=== PATIENT | female | born 1970 | race Caucasian/White ===

== ENCOUNTER 2018-03-02 12:40 | Emergency (ER) | payer MEDICAID, OTHER ==
--- NOTE | 2018-03-02 14:35 | ER Document Report ---
ED Medical Screen (RME) - General Chief Complaint: Ear Pain Stated Complaint: BILATERAL EAR PAIN Time Seen by Provider: 03/02/18 14:26 TRAVEL OUTSIDE OF THE [place] IN LAST 30 DAYS: No - HPI Notes: 03/02/18 14:33 Patient is a 47-year-old female that presents to the emergency department for chief complaint of bilateral ear pain. Patient referred to the emergency room from the [place] for concerns of bilateral ear pain and facial swelling. She has a history of hearing loss and is unable to get her hearing aids in because of ear swelling. A family member was recently treated for otitis externa as well. Patient complains of increased swelling around her ears and face over the last few days. She denies fevers. ROS: GENERAL: Denies fever of chills CV: Denies chest pain PHYSICAL EXAMINATION: GENERAL: Well-appearing, well-nourished and in no acute distress. HEAD: Atraumatic, normocephalic. EYES: Pupils equal round extraocular movements intact, conjunctiva are normal. ENT: Nares patent. Edema of bilateral external ear canals with no purulent drainage noted. Bilateral mastoid tenderness worse on the left. NECK: Normal range of motion LUNGS: No respiratory distress Musculoskeletal: Normal range of motion NEUROLOGICAL: Normal speech, normal gait. PSYCH: Normal mood, normal affect. MDM: Patient seen and examined for rapid initial assessment. Vital signs reviewed. A comprehensive ED assessment and evaluation of the patient, analysis of test results and completion of the medical decision making process will be conducted by additional ED providers. - Related Data Allergies/Adverse Reactions: No Known Allergies Allergy (Unverified 03/02/18 14:30) Past Medical History - Social History Chew tobacco use (# tins/day): No Frequency of alcohol use: Rare Drug Abuse: None Renal/ Medical History: Denies: Hx Peritoneal Dialysis Past Surgical History: Reports: Hx Thyroid Surgery - removed Physical Exam - Vital signs Vitals: Temp Pulse Resp BP Pulse Ox 98.3 F 92 20 135/88 H 100 03/02/18 13:07 03/02/18 13:07 03/02/18 13:07 03/02/18 13:07 03/02/18 13:07 Course - Vital Signs Vital signs: Temp Pulse Resp BP Pulse Ox 98.3 F 92 20 135/88 H 100 03/02/18 13:07 03/02/18 13:07 03/02/18 13:07 03/02/18 13:07 03/02/18 13:07
[2018-03-02 15:04] LABS: ABSOLUTE BASOPHILS # (AUTO) 0.1 10^3/uL (0.0-0.2); ABSOLUTE EOSINOPHILS # (AUTO) 0.1 10^3/uL (0.0-0.6); ABSOLUTE MONOCYTES (AUTO) 1.3 10^3/uL (0.1-1.4); ABSOLUTE NEUT (AUTO) 15.8 10^3/uL (1.7-8.2); BASOPHILS % (AUTO) 0.3 % (0-2); EOSINOPHILS % (AUTO) 0.4 % (0-6); HEMATOCRIT 41.3 % (36.0-47.0); HEMOGLOBIN 13.7 g/dL (12.0-15.5); LYMPHOCYTES % (AUTO) 10.2 % (13-45); MEAN CORPUSCULAR HEMOGLOBIN 26.3 pg (27.0-33.4); MEAN CORPUSCULAR HGB CONC 33.2 g/dL (32.0-36.0); MEAN CORPUSCULAR VOLUME 79 fl (80-97); MONOCYTES % (AUTO) 6.6 % (3-13); PLATELET COUNT 274 10^3/uL (150-450); RED BLOOD COUNT 5.22 10^6/uL (3.72-5.28); RED CELL DISTRIBUTION WIDTH 16.5 % (11.5-14.0); SEGMENTED NEUTROPHILS % (AUTO) 82.5 % (42-78); TOTAL CELLS COUNTED % (AUTO) 100 %; WHITE BLOOD COUNT 19.2 10^3/uL (4.0-10.5)
--- NOTE | 2018-03-02 15:09 | RADIOLOGY REPORT (SQ) ---
EXAM DESCRIPTION: CT ORBIT/SELLA WITHOUT COMPLETED DATE/TIME: 03/02/2018 2:58 pm REASON FOR STUDY: mastoid tenderness COMPARISON: None. TECHNIQUE: Noncontrasted thin section axial images through the temporal bones and skull base were ob tained and reviewed at bone windows and bone algorithm with coronal and sagittal reconstructions. All CT scanners at this facility use dose modulation, iterative reconstruction, and/or weight based d osing when appropriate to reduce radiation dose to as low as reasonably achievable (ALARA). [facility]: Dose Right [facility]: CareDose [facility]: Dose Right [facility]: Teradose 4D [facility]: [employer] RADIATION DOSE: CT Rad equipment meets quality standard of care and radiation dose reduction techniq ues were employed. CTDIvol: 60.6 mGy. DLP: 485 mGy-cm. mGy. LIMITATIONS: None. FINDINGS: RIGHT SIDE: EXTERNAL AUDITORY CANAL: Opacified with earwax TYMPANIC MEMBRANE: No masses, thickening or medial retraction. OSSICLES AND MIDDLE EAR CAVITY: Normal ossicles. No middle ear masses or fluid. INNER EAR STRUCTURES: Normal vestibule and cochlea. Normal aqueducts. INTERNAL AUDITORY CANAL: Normal bony canal without narrowing or widening. No calcified or ossified m asses. TEMPOROMANDIBULAR JOINT: Mild joint space narrowing MASTOID AIR CELLS: Clear. LEFT SIDE: EXTERNAL AUDITORY CANAL: Opacified with earwax TYMPANIC MEMBRANE: No masses, thickening or medial retraction. OSSICLES AND MIDDLE EAR CAVITY: Normal ossicles. Minimal fluid in the left at the tympanum along the ossicles, axial images 68-80. No erosion of the scutum or ossicles to suggest cholesteatoma INNER EAR STRUCTURES: Normal vestibule and cochlea. Normal aqueducts. INTERNAL AUDITORY CANAL: Normal bony canal without narrowing or widening. No calcified or ossified m asses. TEMPOROMANDIBULAR JOINT: Mild joint space narrowing MASTOID AIR CELLS: Clear. CENTRAL SKULL BASE: Normal foramina. No lytic or blastic lesions. INFERIOR BRAIN: Limited view. No acute findings. LIMITED VIEW OF PARANASAL SINUSES IN THE FIELD OF VIEW: Mucous membrane thickening left maxillary si nus with minimal dependently layering fluid from sinusitis IMPRESSION: Opacified external auditory canals bilaterally Trace left middle ear fluid in the epitympanum without aggressive bony erosions to suggest cholesteat emmanuel TECHNICAL DOCUMENTATION: JOB ID: [id number] Quality ID # [id number]: Final reports with documentation of one or more dose reduction techniques (e.g., Au tomated exposure control, adjustment of the mA and/or kV according to patient size, use of iterative reconstruction technique) 2010 [employer]- All Rights Reserved Reading location - IP/workstation name: [email or web address]
[2018-03-02 15:24] LABS: ANION GAP 12 (5-19); BLOOD UREA NITROGEN 11 mg/dL (7-20); CALCIUM 9.2 mg/dL (8.4-10.2); CARBON DIOXIDE 26 mmol/L (22-30); CHLORIDE 100 mmol/L (98-107); GLUCOSE 96 mg/dL (75-110); POTASSIUM 4.5 mmol/L (3.6-5.0); SODIUM 138.3 mmol/L (137-145)
[2018-03-02] MEDS ORDERED: AMOXICILLIN TR/POT CLAVULANATE 500-125 MG TAB PO ONE (16:43)
[2018-03-02] MEDS ORDERED: CIPROFLOXACIN HCL/DEXAMETH OTIC DROP 7.5 ML AU ONE (16:43)
[2018-03-02] MEDS ORDERED: AMOXICILLIN TRIHYD 250 MG CAPSULE PO ONE (16:43)
--- NOTE | 2018-03-02 16:47 | ER Document Report ---
ED General - General Chief Complaint: Ear Pain Stated Complaint: BILATERAL EAR PAIN Time Seen by Provider: 03/02/18 14:26 TRAVEL OUTSIDE OF THE [place] IN LAST 30 DAYS: No - HPI Notes: Patient is a 47-year-old female that presents to the emergency department for chief complaint of bilateral ear pain. Patient referred to the emergency room from the [place] for concerns of bilateral ear pain and facial swelling. She has a history of hearing loss and is unable to get her hearing aids in because of ear swelling. A family member was recently treated for otitis externa as well. Patient complains of increased swelling around her ears and face over the last few days. She denies fevers. She has tried Tylenol and ibuprofen at home for pain without relief. Past Medical History: Depression, GERD, hypothyroidism Past Surgical History: Reviewed Social History: Denies drugs alcohol and tobacco Family History: Reviewed and noncontributory for presenting illness Allergies: Reviewed, see documented allergy list. REVIEW OF SYSTEMS: CONSTITUTIONAL : No fever No chills No diaphoresis No recent illness EENT: No vision changes No congestion No sore throat Bilateral ear pain and facial swelling CARDIOVASCULAR: No chest pain No palpitations No shortness of breath RESPIRATORY: No shortness of breath No cough No difficulty breathing GASTROINTESTINAL: No abdominal pain No nausea No vomiting No diarrhea GENITOURINARY: No dysuria No hematuria No difficulty urinating MUSCULOSKELETAL: No back pain No leg pain No arm pain SKIN: No rashes No lesions LYMPHATIC: No swollen, enlarged glands. NEUROLOGICAL: No lightheadedness No headache No weakness No paresthesias PSYCHIATRIC: No anxiety No depression PHYSICAL EXAMINATION: Vital signs reviewed, nursing noted reviewed. GENERAL: Well-appearing, well-nourished and in no acute distress. HEAD: Atraumatic, normocephalic. EYES: Eyes appear normal, extraocular movements intact, sclera anicteric, conjunctiva are normal. ENT: nares patent, oropharynx clear without exudates. Moist mucous membranes. No parotid tenderness. Bilateral external auditory meatus edema with no purulent drainage. Bilateral TMs tenderness and erythema of bilateral pinna and face anterior to ears NECK: Normal range of motion, supple without lymphadenopathy LUNGS: Breath sounds clear to auscultation bilaterally and equal. No wheezes rales or rhonchi. HEART: Regular rate and rhythm without murmurs ABDOMEN: Soft, nontender, normoactive bowel sounds. No rebound, guarding, or rigidity. No masses appreciated. EXTREMITIES: Nontender, good range of motion, no pitting or edema. NEUROLOGICAL: No focal neurological deficits. Moves all extremities spontaneously Motor and sensory grossly intact on exam. PSYCH: Normal mood, normal affect. SKIN: Warm, Dry, normal turgor, no rashes or lesions noted on exposed skin - Related Data Allergies/Adverse Reactions: No Known Allergies Allergy (Unverified 03/02/18 14:30) Past Medical History - Social History Smoking Status: Current Every Day Smoker Chew tobacco use (# tins/day): No Frequency of alcohol use: Rare Drug Abuse: None Family History: Reviewed & Not Pertinent Patient has suicidal ideation: No Patient has homicidal ideation: No Renal/ Medical History: Denies: Hx Peritoneal Dialysis Past Surgical History: Reports: Hx Thyroid Surgery - removed Review of Systems - Review of Systems Notes: Dictated Physical Exam - Vital signs Vitals: Temp Pulse Resp BP Pulse Ox 98.3 F 92 20 135/88 H 100 03/02/18 13:07 03/02/18 13:07 03/02/18 13:07 03/02/18 13:07 03/02/18 13:07 - Notes Notes: Dictated Course - Re-evaluation Re-evalutation: 03/02/18 16:50 Vitals reviewed. Patient is afebrile and not meeting Sirs criteria. I do not suspect sepsis. Lab work shows a significant leukocytosis at 19 which is related to her bilateral otitis externa and facial cellulitis. Patient is hemodynamically stable and does not wish to be admitted to the hospital. She will be started on Augmentin and Ciprodex for her infection. She was told to return immediately to the emergency room if she develops any worsening symptoms. CT currently shows no mastoiditis. Patient in agreement with this plan and stable at time of discharge. Orbit CT 03/02/18 14:33 IMPRESSION: Opacified external auditory canals bilaterally Trace left middle ear fluid in the epitympanum without aggressive bony erosions to suggest cholesteatoma Laboratory 03/02/18 03/02/18 14:38 14:38 WBC 19.2 H RBC 5.22 Hgb 13.7 Hct 41.3 MCV 79 L MCH 26.3 L MCHC 33.2 RDW 16.5 H Plt Count 274 Seg Neutrophils % 82.5 H Lymphocytes % 10.2 L Monocytes % 6.6 Eosinophils % 0.4 Basophils % 0.3 Absolute Neutrophils 15.8 H Absolute Lymphocytes 2.0 Absolute Monocytes 1.3 Absolute Eosinophils 0.1 Absolute Basophils 0.1 Sodium 138.3 Potassium 4.5 Chloride 100 Carbon Dioxide 26 Anion Gap 12 BUN 11 Creatinine 0.64 Est GFR ( Amer) > 60 Est GFR (Non-Af Amer) > 60 Glucose 96 Calcium 9.2 - Vital Signs Vital signs: Temp Pulse Resp BP Pulse Ox 98.3 F 92 20 135/88 H 100 03/02/18 13:07 03/02/18 13:07 03/02/18 13:07 03/02/18 13:07 03/02/18 13:07 - Laboratory Result Diagrams: 03/02/18 14:38 03/02/18 14:38 Laboratory results interpreted by me: 03/02/18 14:38 WBC 19.2 H MCV 79 L MCH 26.3 L RDW 16.5 H Seg Neutrophils % 82.5 H Lymphocytes % 10.2 L Absolute Neutrophils 15.8 H Discharge - Discharge Clinical Impression: Facial cellulitis Otitis externa of both ears Qualifiers: Otitis externa type: other infective Chronicity: acute Qualified Code(s): H60.393 - Other infective otitis externa, bilateral Condition: Stable Disposition: HOME, SELF-CARE Instructions: Oral Narcotic Medication ([facility]), Otitis Externa ([facility]), Cellulitis ([facility]) Additional Instructions: Please return to the emergency department if you have any worsening, or concern of your symptoms. Please return to the emergency department if you develop chest pain, difficulty breathing, severe abdominal pain, or ongoing vomiting. Please follow-up with your primary care physician in 2-3 days and any other recommended physicians. If prescribed, take all medications as directed. If you have any questions or concerns do not hesitate to return the emergency department for evaluation. [] Prescriptions: Amox Tr/Potassium Clavulanate [Augmentin 875-125 Tablet] 1 tab PO BID 10 Days tablet Ciprofloxacin HCl/Dexameth [Ciprodex Otic Suspension 7.5 ml Bottle] 4 drop OT BID 10 Days #1 bottle Hydrocodone/Acetaminophen [[place] 5-325 mg Tablet] 1 tab PO Q4 PRN #12 tablet PRN Reason: Pain Scale Of 1
[2018-03-02 17:22] VITALS: BP 132/74
== END 2018-03-02 17:22 | disposition home or self-care (01) ==
LOC: ER 12:40
DX: L03.211 Cellulitis of face (principal); H92.03 Otalgia, bilateral; H93.8X3 Other specified disorders of ear, bilateral; F17.200 Nicotine dependence, unspecified, uncomplicated
CPT/HCPCS: 99283; 36415; 85025; 80048; 70480; J3490 ×2

== ENCOUNTER 2018-10-21 12:45 | Emergency (ER) | payer OTHER ==
[2018-10-21] MEDS ORDERED: DEXAMETHASONE SOD PHOS INJ 10 MG/1 ML VIAL IM ONE (14:54)
[2018-10-21] MEDS ORDERED: LIDOCAINE 5% (700 MG) TRANSDERMAL ADH..PATCH TP ONE (14:54)
[2018-10-21] MEDS ORDERED: KETOROLAC TROMETHAMINE 60 MG/2 ML SDV IM ONE (14:54)
--- NOTE | 2018-10-21 15:37 | ER Document Report ---
HPI - HPI Time Seen by Provider: 10/21/18 14:27 Pain Level: 5 Notes: This patient is a 48-year-old morbidly obese female presenting to the emergency department with lumbar back pain. Patient denies any specific injury but states she "threw out" her back. She denies any loss of bowel control or urinary retention. She denies any saddle anesthesia or fevers. She states this has happened before and usually self resolves. Patient is able to ambulate and ambulated into the emergency department with a even and steady but slow gait. Patient does report the pain radiates slightly down into her right buttock. - EENT EENT: DENIES: Sore Throat, Ear Pain, Eye problems - NEURO Neurology: DENIES: Headache, Weakness, Vision blurred, Dizzinesss / Vertigo - CARDIOVASCULAR Cardiovascular: DENIES: Chest pain - RESPIRATORY Respiratory: DENIES: Trouble Breathing, Coughing - GASTROINTESTINAL Gastrointestinal: DENIES: Abdominal Pain, Black / Bloody Stools - URINARY Urinary: DENIES: Dysuria, Urgency, Frequency - REPRODUCTIVE Reproductive: DENIES: :, Postmenopausal, Abnormal bleeding / discharge - MUSCULOSKELETAL Musculoskeletal: DENIES: Extremity pain Past Medical History - General Information source: Patient - Social History Smoking Status: Current Every Day Smoker Chew tobacco use (# tins/day): No Frequency of alcohol use: None Drug Abuse: None Family History: Reviewed & Not Pertinent Patient has suicidal ideation: No Patient has homicidal ideation: No - Past Medical History Cardiac Medical History: Reports: Hx Hypertension Renal/ Medical History: Denies: Hx Peritoneal Dialysis Past Surgical History: Reports: Hx Thyroid Surgery - removed Vertical Provider Document - CONSTITUTIONAL Notes: PHYSICAL EXAMINATION: GENERAL: Well-appearing, well-nourished and in no acute distress. HEAD: Atraumatic, normocephalic. EYES: Pupils equal round extraocular movements intact, conjunctiva are normal. ENT: Nares patent NECK: Normal range of motion LUNGS: No respiratory distress Musculoskeletal: Normal range of motion, tenderness to palpation to paraspinous muscles on the right side, no vertebral tenderness, step-off or deformity. Equal strength to bilateral upper and lower extremities. NEUROLOGICAL: Normal speech, normal gait. PSYCH: Normal mood, normal affect. SKIN: Warm, Dry, normal turgor, no rashes or lesions noted. - INFECTION CONTROL TRAVEL OUTSIDE OF THE [place] IN LAST 30 DAYS: No Course - Re-evaluation Re-evalutation: No indication for imaging as patient does not had any direct trauma to the area nor does she have any complaints of numbness or tingling in her extremities, bowel incontinence, urinary retention or saddle anesthesia. Patient was medicated here in the emergency department and she did have significant relief of her pain. Patient will be discharged home in stable condition. Encouraged to follow-up with primary care. We did discuss that if pain does not ease up she may need to consider physical therapy and/or an MRI. - Vital Signs Vital signs: Temp Pulse Resp BP Pulse Ox 97.9 F 97 20 153/102 H 97 10/21/18 12:55 10/21/18 12:55 10/21/18 12:55 10/21/18 12:55 10/21/18 12:55 Discharge - Discharge Clinical Impression: Low back pain Qualifiers: Chronicity: acute Back pain laterality: right Sciatica presence: with sciatica Sciatica laterality: sciatica of right side Qualified Code(s): M54.41 - Lumbago with sciatica, right side Condition: Stable Disposition: HOME, SELF-CARE Additional Instructions: You have been seen in the Emergency Department (ED) today for back pain. Your workup and exam have not shown any acute abnormalities and you are likely suffering from muscle strain or possible problems with your discs, but there is no treatment that will fix your symptoms at this time. Please take the muscle relaxer that has been prescribed as directed. You should also purchase a local lidocaine cream such as "aspercreme with lidocaine" and use per bottle instructions to the affected area. Apply heat to the area as often as you are able. Continue to keep active and avoid prolonged periods of bed rest. Please follow up with your doctor as soon as possible regarding today's ED visit and your back pain. Return to the ED for worsening back pain, fever, weakness or numbness of either leg, or if you develop either (1) an inability to urinate or have bowel movements, or (2) loss of your ability to control your bathroom functions (if you start having "accidents"), or if you develop other new symptoms that concern you.concern you. Please take medications as prescribed. Also take ibuprofen 600 mg every 6 hours for the next several days. Take this medication [id number]. If your pain does not resolve with time, I would say within the next couple of weeks [facility] of your lumbar spine. Until your symptoms resolve I would not recommend seeing a chiropractor at this time. Prescriptions: Cyclobenzaprine HCl [Flexeril 10 mg Tablet] 10 mg PO TIDP PRN #20 tab PRN Reason: Lidocaine [Lidoderm 5% (700 mg) Transdermal Patch] 1 patch TP DAILY #30 adh..patch [facility] [[facility]] - Follow up as needed
[2018-10-21 15:38] VITALS: BP 158/91
== END 2018-10-21 16:01 | disposition home or self-care (01) ==
LOC: ER 12:45
DX: M54.41 Lumbago with sciatica, right side (principal); F17.200 Nicotine dependence, unspecified, uncomplicated; I10 Essential (primary) hypertension
CPT/HCPCS: 99283; 96372; J1885; J1100